=== PATIENT | female | born 1940 | race Caucasian/White ===

== ENCOUNTER 2016-09-11 11:35 | Emergency (ER) | payer MEDICARE, BC ==
--- NOTE | ~2016-09-11 | CT71 ---
[facility] A Service of [facility] RADIOLOGY TEXT RESULTS PATIENT: YUVAL SAVAGE LOCATION: [facility] : 40 UNIT #: [id number] AGE: [address]: Jan Saenz MD SEX: F ORDER DR: [id number] [facility]. [place], [place] [address] [id number] E MR#: [id number] #: [id number] NAME: YUVAL SAVAGE. : 1940 SEX: F STUDY DATE/TIME: 09/11/2016 13:01 UNIT: [id number] ROOM: STUDY DESCRIPTION: CT Head Wo Contrast Attending Physician: Charles Saenz M.D. Ordering Physician: [facility] Primary Care Physician: Cuco Wilson MEDICAL IMAGING REPORT This report is preliminary unless electronic signature is present EXAM CT head, noncontrast, 09/11/2016 HISTORY 76-year-old female in the ED after head injury. Fell today, striking back of head on concrete surface. She complains of occipital pain. The patient is on Coumadin. TECHNIQUE CT examination of the head was performed without IV contrast. This CT exam was performed with one or more of the following radiation dose reduction techniques: automatic exposure control, adjustment of mA and/or kV according to patient size, and iterative reconstruction. FINDINGS No acute intracranial abnormality is demonstrated. No visible skull fracture. Minimal cerebral cortical atrophy and mild cerebellar atrophy. Minimal diffuse patchy low-attenuation white matter changes are nonspecific but likely related to chronic small vessel disease. Atheromatous calcification in the carotid siphons. These changes are stable since the previous exam of 08/26/2010. No evidence of intracranial hemorrhage, mass, mass effect, cerebral edema or progressive ventricular enlargement. IMPRESSION 1. No acute intracranial abnormality. No visible skull fracture. No evidence of acute intracranial hemorrhage. 2. Stable mild diffuse chronic changes as noted above. No change since 08/26/2010. [facility] A Service of [facility] RADIOLOGY TEXT RESULTS PATIENT: YUVAL SAVAGE LOCATION: [facility] : 40 UNIT #: [id number] AGE: [address]: Jan Saenz MD SEX: F ORDER DR: Dictated by... Desmond Mcduffie M.D. THIS IS AN ELECTRONICALLY VERIFIED REPORT Desmond Mcduffie M.D. at 09/11/2016 10:02 PM EDOUARD/carmen TD: 09/11/2016 16:20 JOB #: [id number] MEDICAL IMAGING REPORT Page 1 of 1 COPY
[~2016-09-11 11:35] MED LIST: ASPIRIN81 M1 PO; ASPIRIN81 M2 PO; B COMPLEX1 TAB PO; CALCIUM 1,0001 EACH PO; CALCIUM1 TAB.CHEW PO; CORDARONE200 M1 PO; HYDRALAZINE HCL25 MG PO; LASIX PO; LISINOPRIL20 MG PO; OMEPRAZOLE20 M2 PO; PRILOSEC20 MG PO; REPATHA SU140 MG/1 M; SAVAYSA60 MG PO; SIMVASTATIN40 MG PO; VITAMIN D400 UNI2 PO; XARELTO20 MG PO
[2016-09-11 12:28] LABS: BASOPHIL# 0.1 X10e3 (0-0.3); BASOPHIL% 1.3 % (0-2.5); EOSINOPHIL# 0.1 X10e3 (0-0.7); EOSINOPHIL% 1.6 % (0.0-7.0); HEMATOCRIT 39.8 % (35.0-45.0); HEMOGLOBIN 13.2 gm/dL (12.0-16.0); LYMPHOCYTE# 0.9 X10e3 (1.0-3.5); LYMPHOCYTE% 19.8 % (17.0-45.0); MEAN CELL VOLUME 90.9 FL (83-96); MEAN CORPUSCULAR HEMOGLOBIN 30.2 PG (28-34); MEAN CORPUSCULAR HGB CONC 33.2 g/dL (30-36); MEAN PLATELET VOLUME 7.9 FL (6.5-11.5); MONOCYTE# 0.4 X10e3 (0-1.0); MONOCYTE% 9.5 % (3.0-12.0); NEUTROPHIL# 2.9 X10e3 (1.5-7.1); NEUTROPHIL% 67.8 % (40-75); PLATELET COUNT 280 X10e3 (140-420); RED BLOOD COUNT 4.37 X10e (3.90-5.30); WHITE BLOOD COUNT 4.3 X10e3 (4.0-10.5)
[2016-09-11 12:37] LABS: DIFF IND NO
[2016-09-11 12:52] LABS: CALCIUM SERUM 9.2 mg/dL (8.4-10.2); CREATININE SERUM 0.9 mg/dL (0.6-1.4); GLOM FILT RATE Estimated 62.2 mL/min (>60); POTASSIUM 4.1 mmol/L (3.5-5.1)
[2016-09-11 12:55] LABS: INR 2.3; PARTIAL THROMBOPLASTIN TIME 35.2 SECONDS (23.5-31.3); PROTHROMBIN TIME (PATIENT) 25.1 SECONDS (10.0-11.7)
== END 2016-09-11 15:11 | disposition home or self-care (01) ==
LOC: CED 11:35
PROVIDERS: Emergency Medicine
DX: S01.01XA Laceration without foreign body of scalp, initial encounter (principal); K21.9 Gastro-esophageal reflux disease without esophagitis; W17.89XA Other fall from one level to another, initial encounter; Y92.009 Unspecified place in unspecified non-institutional (private) residence as the place of occurrence of the external cause
CPT/HCPCS: 12001; 36415; 70450; 80048; 85025; 85610; 85730; 90471; 90715; 99284